=== PATIENT | male | born 1955 | race Caucasian/White ===

== ENCOUNTER 2017-07-02 09:17 | Emergency (ER) | payer OTHER ==
[2017-07-02 09:25] VITALS: RESP 16
--- NOTE | 2017-07-02 09:30 | CPEKG ---
Heart Rate: 53 RR Interval: 1132 P-R Interval: 172 QRSD Interval: 88 QT Interval: 428 QTC Interval: 402 P Eldridge: 72 QRS Eldridge: 55 T Wave Eldridge: 56 EKG Severity - NORMAL ECG - EKG Impression: SINUS RHYTHM Electronically Signed By: Nirmal Rodriguez 02-Jul-2017 15:22:00
[2017-07-02] MEDS ORDERED: ASPIRIN 81 MG CHEWABLE TAB PO ONE (09:44)
--- NOTE | 2017-07-02 09:47 | EDPHY ---
General Time Seen by Provider: 07/02/17 09:38 Narrative: CHIEF COMPLAINT: Chest pain HISTORY OF PRESENT ILLNESS: Patient complains of central chest pain. This has been present for nearly 4-5 weeks. It is only with exertion. Occasionally radiates to the arm and axilla. No shortness of breath but he does feel fatigued with. No chest pain at this time and no chest pain at rest. No nausea or vomiting. No diaphoresis. The pain is consistently worse with his level of exertion, thus he is changes exercise regimen over the past 4 weeks. He is no longer mountain biking and has than minimal exercise because the pain always returns. Contact his primary care physician who recommended that he come to the emergency department. He does have a history of palpitations and chest pain in the past, with reportedly normal stress test many years ago. No recent cardiac workup. No history of venous thrombolic event. No erythema edema or pain of the extremities. His concern has worsened as he is supposed to fly to [place] on . No other associated complaints or modifying factors. REVIEW OF SYSTEMS: Ten systems reviewed and are negative unless otherwise noted in the HPI PCP: Dr. Chowdary SPECIALISTS: None PAST MEDICAL HISTORY: Hypothyroid PAST SURGICAL HISTORY: No recent surgeries SOCIAL HISTORY: Never smoker. Rare alcohol use. No drug use. Works as a businessman FAMILY HISTORY: Noncontributory EXAMINATION General Appearance: Alert, no distress Head: normocephalic, atraumatic Eyes: Pupils equal and round, no conjunctival pallor or injection ENT, Mouth: Mucous membranes moist Neck: Normal inspection, supple, non-tender Respiratory: Lungs are clear to auscultation. No wheezing, rhonchi or crackles Cardiovascular: Regular rate and rhythm. No murmur Gastrointestinal: Abdomen is soft and nontender Back: non-tender, no bony abnormalities Neurological: A&O, nonfocal, normal gait Skin: Warm and dry, no rash no petechiae or purpura Extremities: Nontender, no pedal edema Psychiatric: Mood and affect normal DIFFERENTIAL DIAGNOSES: Including but not limited to ACS, stable angina, unstable angina, pleurisy, pericarditis, effusion, failure, unstable angina MDM: 9:45 a.m. Central/retrosternal chest pain that is present only with exertion. He has no pain at this time. The pain has been intermittently present over the past 4-6 weeks. His history is concerning for stable angina. His vital signs are within normal limits with no tachycardia. There is no signs of illness on examination or by history. EKG has been reviewed by Dr. Rodriguez and shows normal sinus rhythm. He does not describe any concern for venous thrombolic event. He has a stress test that was done many years ago, definitely greater than 5. At this time he is on a dean of graduate studies and laboratory studies are pending. I have ordered aspirin and I will discuss with Dr. Rodriguez. 10:12 a.m. CBC and chemistries are unremarkable. Troponin is pending. TSH is pending. He has declined a chest x-ray at this time 10:20 a.m. Troponin is negative. 10:35 a.m. I have re-evaluated the patient. He has now consented to a chest x-ray. We discussed the negative laboratory studies and also my concern for stable angina. I informed him that I would like to contact Cardiology to discuss the possibility of a stress test today. He is agreeable this plan. I have also discussed this with Dr. Rodriguez and he is in agreement as well. 10:39 a.m. Case discussed with Dr. Hubbard, time clock mechanic. He will come evaluate the patient in the emergency department shortly. 12:[address] Hubbard has evaluated the patient. He has ordered a stress test. Plans for return to the emergency department for discharge at this is a normal test. If the test is abnormal they will admit the patient proceed with appropriate intervention. At this time the stress test has been ordered he remained stable in no acute distress on dean of graduate studies. 1:05 p.m. Patient has been taken to the noninvasive cardiac testing area for his stress test. 2:00 p.m. DANIEL Gutierrez has been notified by Dr. Hubbard that the stress test is negative. Cardiology is comfortable with allowing the patient to go home with further, exercise nuclear test tomorrow in their office. This has been scheduled. The patient is comfortable this plan and discharged home stable condition. ED precautions discussed [place] heart score: 2-3 with a pending troponin EKG interpretation: Dr. Rodriguez Normal sinus rhythm. No acute ischemia no previous available for comparison SUPERVISION: Patient was independently examined, but I discussed the case with my secondary supervising physician Dr. Rodriguez - Diagnostics Imaging Results: Imaging Impressions Chest X-Ray 07/02/17 09:39 Impression: Clear lungs. Negative portable chest. - History Smoking Status: Never smoked - Objective Vital Signs: Initial Vital Signs Temperature (C) 97.5 F 07/02/17 09:22 Heart Rate 55 L 07/02/17 09:22 Respiratory Rate 16 07/02/17 09:22 Blood Pressure 104/69 07/02/17 09:22 O2 Sat (%) 98 07/02/17 09:22 O2 Delivery Mode Room Air Allergies/Adverse Reactions: No Known Allergies Allergy (Unverified 07/02/17 09:22) Home Medications: Medication Instructions Recorded Nature Thyroid 07/02/17 Laboratory Results: Laboratory Results 07/02/17 09:36 07/02/17 09:36 07/02/17 07/02/17 07/02/17 09:36 09:36 09:36 WBC 3.08 10^3/uL L 10^3/uL (3.80-9.50) RBC 4.07 10^6/uL L 10^6/uL (4.40-6.38) Hgb 13.3 g/dL L g/dL (13.7-17.5) Hct 39.0 % L % (40.0-51.0) MCV 95.8 fL fL (81.5-99.8) MCH 32.7 pg pg (27.9-34.1) MCHC 34.1 g/dL g/dL (32.4-36.7) RDW 12.9 % % (11.5-15.2) Plt Count 148 10^3/uL L 10^3/uL (150-400) MPV 12.0 fL H fL (8.7-11.7) Neut % (Auto) 49.8 % % (39.3-74.2) Lymph % (Auto) 35.7 % % (15.0-45.0) [place] % (Auto) 12.0 % % (4.5-13.0) Eos % (Auto) 1.6 % % (0.6-7.6) Baso % (Auto) 0.6 % % (0.3-1.7) Nucleat RBC Rel Count 0.0 % % (0.0-0.2) Absolute Neuts (auto) 1.53 10^3/uL L 10^3/uL (1.70-6.50) Absolute Lymphs (auto) 1.10 10^3/uL 10^3/uL (1.00-3.00) Absolute Monos (auto) 0.37 10^3/uL 10^3/uL (0.30-0.80) Absolute Eos (auto) 0.05 10^3/uL 10^3/uL (0.03-0.40) Absolute Basos (auto) 0.02 10^3/uL 10^3/uL (0.02-0.10) Absolute Nucleated RBC 0.00 10^3/uL 10^3/uL (0-0.01) Immature Gran % 0.3 % % (0.0-1.1) Immature Gran # 0.01 10^3/uL 10^3/uL (0.00-0.10) PT 13.9 SEC SEC (12.0-15.0) INR 1.05 (0.83-1.16) APTT 26.9 SEC SEC (23.0-38.0) Sodium 144 mEq/L mEq/L (135-145) Potassium 4.7 mEq/L mEq/L (3.5-5.2) Chloride 106 mEq/L mEq/L (97-110) Carbon Dioxide 27 mEq/l mEq/l (22-31) Anion Gap 11 mEq/L mEq/L (8-16) BUN 25 mg/dL H mg/dL (7-23) Creatinine 1.3 mg/dL mg/dL (0.7-1.3) Estimated GFR 56 Glucose 59 mg/dL L mg/dL (70-100) Calcium 9.1 mg/dL mg/dL (8.5-10.4) Troponin I < 0.012 ng/mL ng/mL (0.000-0.034) NT-Pro-B Natriuret Pep 301 pg/mL H pg/mL (0-125) Lipase 117 IU/L IU/L (23-300) TSH 2.920 uIU/mL uIU/mL (0.465-4.680) Medications Given: Discontinued Medications Aspirin (Aspirin) 324 mg PO EDNOW ONE Stop: 07/02/17 09:45 Last Admin: 07/02/17 09:54 Dose: 324 mg Departure - Departure Disposition: Home, Routine, Self-Care Clinical Impression: Chest pain Qualifiers: Chest pain type: unspecified Qualified Code(s): R07.9 - Chest pain, unspecified Condition: Good Instructions: Chest Pain (ED), Cardiac Stress Test (DC) Additional Instructions: 1. You have a test scheduled tomorrow 2:00 p.m. at [facility]. Please follow their instructions 2. ED precautions for any return of pain, worsening pain, radiating pain, nausea , diaphoresis Referrals: NONE *PRIMARY CARE P,. [Primary Care Provider] - As per Instructions Martin Hubbard MD [Medical Doctor] - As per Instructions
[2017-07-02 09:51] LABS: PLATELET COUNT 148 10^3/uL (150-400)
[2017-07-02 10:00] LABS: INR 1.05 (0.83-1.16); PROTIME(PATIENT) 13.9 SEC (12.0-15.0)
[2017-07-02 10:54] VITALS: O2SAT 97
[2017-07-02 14:09] VITALS: BP 110/69; PULSE 73; TEMP 98.2
--- NOTE | 2017-07-02 14:27 | GCON ---
[f rep st] CONSULTATION CARDIOLOGY CONSULTATION DATE OF CONSULTATION: 07/02/2017 REFERRING PHYSICIAN: Nirmal Rodriguez MD REASON FOR CONSULTATION: Exertional chest pain, shortness of breath. HISTORY OF PRESENT ILLNESS: The patient is a pleasant 61-year-old gentleman with a known history of hypothyroidism, renal disease, and history of MGUS, who presents to [facility] Emergency Department with a 6-8 week history of exertional substernal chest tightness. He states that approximately 8 weeks ago, he felt as if he was "out of shape" and began a regular exercise program. He had noticed approximately 8 weeks ago that he had shortness of breath and dyspnea with exertion. He had 1 episode of bilateral arm pain that occurred at rest. He states that when he began exercising for the 1st time on an elliptical color strainer, he developed palpitations, with no associated dizziness, lightheadedness, near syncope, or syncope. His symptoms of palpitations and bilateral arm discomfort resolved. He has noticed over the last 6 weeks, intermittent episodes of exertional chest pain that he describes as a substernal tightness, nonradiating, and associated with shortness of breath, that occurs when his heart rate today is higher than 120-125 beats per minute. He states that with cooling down the symptoms resolve. He has been curtailing or limiting his exercise to avoid hitting heart rates of 120 or greater. At rest, he is asymptomatic. He has no complaints of chest pain, chest pressure , shortness of breath, or dyspnea. He denies complaints of exertional intolerance or fatigue. The patient has no history of hypertension, diabetes, hyperlipidemia. He is a lifelong nonsmoker. He has no family history of premature coronary artery disease. His baseline ECG in the ER today demonstrates sinus bradycardia at 53 beats per minute with normal intervals and normal axis. He presented today secondary to concerns about his exertional chest symptoms. He is anticipating on leaving this for a [place]ing vacation in [place] and felt this needed to be evaluated prior to his departure for [place]. Currently, at the time of my exam, he is resting comfortably without complaints. He is in sinus rhythm at 65 beats per minute. PAST MEDICAL HISTORY: 1. Hypothyroidism. 2. Mild renal insufficiency. He states he has a "small right kidney.". 3. He is followed by his primary care physician back in [place]. 4. MGUS. PAST SURGICAL HISTORY: None. MEDICATIONS ON ADMISSION: Include natural thyroid. ALLERGIES TO MEDICATIONS: No known allergies. SOCIAL HISTORY: He is from a long-term girlfriend with whom he has 2 children who are ages 22 and 20. He is a lifelong nonsmoker. He rarely drinks alcohol. He exercises frequently. He is in the real estate business. FAMILY HISTORY: No family history of premature coronary artery disease, as stated above. PHYSICAL EXAMINATION: VITAL SIGNS: Blood pressure is 98/62, heart rate of 72 in sinus rhythm, oxygen saturation 97% on room air, respiratory rate of 16. GENERAL: He is awake, alert, oriented, appropriate, in no acute distress. NECK : There is no evidence of JVP or carotid bruits. LUNGS: Clear to auscultation bilaterally. CARDIAC: S1, S2. Regular rate and rhythm. No murmurs, rubs, or gallops. ABDOMEN: Soft, nontender, nondistended. There is no pulsatile mass or abdominal bruit. EXTREMITIES: He has 2+ bilateral radial pulses, as well as posterior tibial pulses. There are no evidence of cyanosis, clubbing or edema. LABORATORY STUDIES: ECG demonstrates sinus bradycardia at 53 beats per minute with normal intervals and normal axis. Chest x-ray is unremarkable. LABORATORY DATA: White blood cell count of 3.08, hemoglobin of 13.3, hematocrit of 39, platelets of 148. INR of 1.05. Sodium 144, potassium 4.7, chloride 106, bicarb 27, BUN 25, creatinine 1.3, estimated GFR 56, calcium 9.1. Troponin less than 0.012. N-terminal proBNP 301. Lipase 117. TSH 2.92. IMPRESSION: The patient is a pleasant, 61-year-old gentleman with no high-risk features of coronary artery disease, including no history of hypertension, diabetes, hyperlipidemia, smoking history, or family history of premature coronary artery disease, who presents for further evaluation in the setting of a 6-8 week history of intermittent exertional chest discomfort. He states that one out of three episodes of exercise will result in developing substernal 2/10 to 3/10 nonradiating chest tightness that forces him to reduce his level of activity. He states his pain resolves within minutes of cooling down. Without exercise, he is asymptomatic. In the setting of intermittent episodes of chest discomfort, we discussed options. We discussed exercise treadmill stress test versus CT angiography versus left heart catheterization. In the setting of renal insufficiency, would not recommend CTA as an initial test, as he might ultimately need a left heart catheterization. Would prefer to avoid using multiple studies with iodinated contrast. Ultimately, in the setting of intermittent episodes of exertional chest discomfort, we will plan for exercise treadmill stress test. Pending the results of the stress test, we will consider further diagnostic tests with left heart catheterization if his stress test is abnormal. Risks and benefits of treadmill stress testing, as well as left heart catheterization , have been discussed in detail with the patient. PLAN: 1. Exercise treadmill stress test. 2. Further testing pending the results of his exercise treadmill stress test. 45 minutes spent coordinating care. /[id number]/MODL MTDD
--- NOTE | 2017-07-02 14:52 | CPR ---
[f rep st] NONINVASIVE CARDIAC PROCEDURE REPORT DATE OF PROCEDURE: 07/02/2017 PROCEDURE PERFORMED: Exercise treadmill stress test. INDICATION FOR PROCEDURE: Intermittent exertional chest tightness. In summary, the patient is a pleasant 61-year-old gentleman who [facility] with complaints of intermittent exertional chest tightness over the last 6-8 weeks. At the time of his admission, he was chest pain free. Baseline ECG demonstrated sinus bradycardia at 53 beats per minute with normal intervals and normal axis. No evidence of ischemia or previous infarction. Initial lab work was negative with troponin of less than 0.012. The patient was consented for exercise treadmill stress test. DESCRIPTION OF PROCEDURE: The patient was able to exercise on a standard True protocol. Full baseline ECG demonstrated normal sinus rhythm at approximately 65 beats per minute with oxygen saturation of 98% and resting blood pressure of 120/70. He was able to exercise for 13 minutes and 57 seconds on the standard True protocol. He achieved a peak heart rate of 159 beats per minute representing 100% of his maximum predicted heart rate. Peak blood pressure of 170/82. He did have borderline ECG changes with 1.[address]-segment depressions, in leads 2, 3, AVF, and leads V5 and V6. He had no symptoms. We were unable to reproduce the symptoms that brought him to the emergency department. He denied complaints of chest tightness, arm pain, or palpitations. Piper treadmill score of 6.5, low risk. CONCLUSION: 1. Borderline ECG changes on exercise treadmill stress test with 1.5mm upsloping ST segment depression. 2. Excellent exercise tolerance, achieving 13 minutes and 57 seconds of exercise without symptoms. 3. Piper treadmill score 6.5, low risk. 4. In the setting of borderline ECG changes, would recommend exercise nuclear stress test. 5. Patient is scheduled for exercise nuclear stress test tomorrow at 2 o'clock at [facility]. Will contact patient with results. /[id number]/MODL MTDD
== END 2017-07-02 14:09 | disposition home or self-care (01) ==
DX: R07.9 Chest pain, unspecified (principal)